=== PATIENT | female | born 2000 | race Caucasian/White ===

== ENCOUNTER 2023-08-04 22:50 | Inpatient (IN) | payer BC, SELFPAY ==
[2023-08-04 23:21] LABS: MANUAL DIFF FLAG NO
[2023-08-04 23:22] LABS: Basophils Percent Auto 0.4 % (0-2); Eosinophils Absolute Auto 0.2 X10*3/uL (0.0-0.4); Eosinophils Percent Auto 2.4 % (0-4); Hematocrit 41.5 % (37.0-47.0); Hemoglobin 14.3 g/dl (12.0-16.0); Imm Gran Abs Auto 0.03 X10*3/uL (0.00-0.03); Imm Gran Pct Auto 0.3 % (0.0-0.4); Lymphocytes Percent Auto 32.2 % (20-40); Mean Corpuscular HGB Conc 34.5 g/dl (31.0-35.0); Mean Corpuscular Hemoglobin 30.1 pg (27.0-33.0); Mean Corpuscular Volume 87.4 fL (80.0-98.0); Mean Platelet Volume 9.1 fL (9.4-12.3); Monocytes Absolute Auto 0.6 X10*3/uL (0.1-1.2); Monocytes Percent Auto 6.2 % (2-11); Neutrophils Absolute Auto 5.3 x10*3/uL (2.0-8.3); Neutrophils Percent Auto 58.5 % (45-73); Platelet Count 273 X10*3/uL (160-400); Red Blood Count 4.75 X10*6/uL (4.20-5.50); Red Cell Distribution Width 12.7 % (11.0-16.0); White Blood Count 9.2 X10*3/uL (4.8-10.8)
[2023-08-04 23:38] VITALS: BP 109/68; PULSE 75; RESP 18; TEMP 37.3; O2SAT 99
[2023-08-04 23:43] LABS: Acetaminophen LAB < 3 mcg/mL (<30); Salicylate < 5.0 mg/dL (15-30)
[2023-08-04 23:44] LABS: Alanine Aminotransferase 10 U/L (0-31); Albumin Level 4.1 g/dL (3.5-5.0); Alkaline Phosphatase 66 U/L (39-117); Anion Gap 12 (12-20); Aspartate Amino Transferase 18 U/L (5-31); Bilirubin Total 0.4 mg/dL (0.0-1.0); Blood Urea Nitrogen 14 mg/dL (9-16); Calcium 9.7 mg/dL (8.4-10.2); Carbon Dioxide 26 mmol/L (22-29); Chloride 110 mmol/L (96-108); Creatinine Clr Calc Pharmacy 79.8; Estimated Glomerular Filt Rate > 60; Ethanol < 10 mg/dL; Glucose Random 95 mg/dL (60-115); Magnesium 2.3 mg/dL (1.6-2.6); Potassium 4.2 mmol/L (3.3-5.1); Sodium 144 mmol/L (135-145); Total Protein 7.3 g/dL (6.5-8.0)
--- NOTE | 2023-08-05 00:04 | ED.PSYCH ---
HPI - Psych General Chief Complaint: Psychiatric Symptoms Stated Complaint: Mental Health Concerns Time Seen by Provider: 08/05/23 00:03 Source: patient Mode of arrival: ambulatory Limitations: no limitations History of Present Illness HPI Narrative: 23-year-old female presents with suicidal ideation no particular plan. Reports increasing life stressors. Was seen by her therapist who told her to come in today to be evaluated. Patient reports she typically cuts to feel something however today has been worse and she has been feeling suicidal however she tells me she cut to cope not to kill herself. Reports increasing life stressors, recently broke up with significant other, recent of a loved 1, and reports brother who she is financially responsible for is currently hospitalized. Denies visual, auditory and tactile hallucinations. Denies drugs, alcohol and tobacco. No medical complaints. Related Data Allergies Allergy/AdvReac Type Severity Reaction Status Date / Time Unable to Assess Allergy Unverified 08/04/23 23:03 Review of Systems Review of Systems: Yes all other systems are reviewed and are negative [facility] Past Medical History Attestation statement: The following information was validated with the patient. Source: old records reviewed and nursing notes reviewed Social History Social History Advance Directives: No Advance Directives Information Provided: Yes Physical Exam Vital Signs: Vital Signs: Last Vital Signs Temp 99.1 F 08/04/23 23:38 Pulse 75 08/04/23 23:38 Resp 18 08/04/23 23:38 BP 109/68 08/04/23 23:38 Pulse Ox 99 08/04/23 23:38 O2 Del Method Room Air 08/04/23 23:38 BMI result Body Mass Index 20.0 vss Appearance: Alert.? Oriented X3.? No acute distress.?Flat affect Head: Normocephalic, atraumatic, no step-offs or deformities Eyes: Pupils equal, round and reactive to light.? ENT: Pharynx normal.? Neck: Normal inspection.? Neck supple.? CVS: Normal heart rate and rhythm.? Pulses normal.? Respiratory: No respiratory distress.? Breath sounds normal.? Abdomen: Soft and nontender.? Skin: Skin warm and dry.? Normal skin color.? Normal skin turgor.? Extremities: No lower extremity edema.? No calf ttp. 5/5 strength to bilateral upper and lower extremities + multiple superficial lacerations to chest, abdomen b/l UE and LE. No deep laceraitions noted. Neuro: Oriented X 3.? No motor deficit.? No sensory deficit. CN 2-12 intact Course Reevaluation(s) Reevaluation #1: CBC unremarkable. Chemistry no acute findings. Salicylates, acetaminophen ethanol negative. Urine toxicology pending. At this time patient to be placed into observation to allow more time to be evaluated by care team. At time observation started patient on one-to-one, will continue to monitor. Time: 00:09 Medical Decision Making Medical Decision Making [facility] Narrative: 0005 23-year-old female presents with suicidal ideation with plan to cut wrist, presents with multiple lacerations upper and lower extremities. Was advised to come in by therapist Physical exam superficial lacerations to chest, abdomen, upper and lower extremities. No deep lacerations requiring repair. History and physical exam concerning for anxiety versus depression. Other differentials include schizophrenia, bipolar disorder. Unlikely suicidal or homicidal ideation patient denies this. Unlikely metabolic derangements. No signs of infected wounds. Plan medical clearance, safety measures in place Differential Diagnosis Differential Diagnoses: The differential diagnosis associated with the presentation includes History and physical exam concerning for anxiety versus depression. Other differentials include schizophrenia, bipolar disorder. Unlikely suicidal or homicidal ideation patient denies this. Unlikely metabolic derangements. No signs of infected wounds. Admission/Observation Consideration of admission/observation: Escalation of care including admission/observation considered Possible Lab Data [facility] Lab Attestation statement: I reviewed the patient's lab results. 08/04/23 23:14 08/04/23 23:14 Labs: Lab Results 08/04/23 Range/Units 23:14 WBC 9.2 (4.8-10.8) X10*3/uL RBC 4.75 (4.20-5.50) X10*6/uL Hgb 14.3 (12.0-16.0) g/dl Hct 41.5 (37.0-47.0) % MCV 87.4 (80.0-98.0) fL MCH 30.1 (27.0-33.0) pg MCHC 34.5 (31.0-35.0) g/dl RDW 12.7 (11.0-16.0) % Plt Count 273 (160-400) X10*3/uL MPV 9.1 L (9.4-12.3) fL Immature Gran % (Auto) 0.3 (0.0-0.4) % Neut % (Auto) 58.5 (45-73) % Lymph % (Auto) 32.2 (20-40) % [place] % (Auto) 6.2 (2-11) % Eos % (Auto) 2.4 (0-4) % Baso % (Auto) 0.4 (0-2) % Lymph # (Auto) 3.0 (1.2-4.9) X10*3/uL [place] # (Auto) 0.6 (0.1-1.2) X10*3/uL Eos # (Auto) 0.2 (0.0-0.4) X10*3/uL Baso # (Auto) 0.0 (0.0-0.2) X10*3/uL Abs Immat Gran (auto) 0.03 (0.00-0.03) X10*3/uL Absolute Neuts (auto) 5.3 (2.0-8.3) x10*3/uL Absolute Nucleated RBC 0.000 (0.0-0.012) X10*3/uL Nucleated RBC % (auto) 0.0 (0.0-0.2) /100WBC Sodium 144 (135-145) mmol/L Potassium 4.2 (3.3-5.1) mmol/L Chloride 110 H (96-108) mmol/L Carbon Dioxide 26 (22-29) mmol/L Anion Gap 12 (12-20) BUN 14 (9-16) mg/dL Creatinine 0.95 (0.5-1.4) mg/dL Estim Creat Clear Calc 79.8 Estimated GFR > 60 Random Glucose 95 (60-115) mg/dL Calcium 9.7 (8.4-10.2) mg/dL Magnesium 2.3 (1.6-2.6) mg/dL Total Bilirubin 0.4 (0.0-1.0) mg/dL AST 18 (5-31) U/L ALT 10 (0-31) U/L Alkaline Phosphatase 66 (39-117) U/L Total Protein 7.3 (6.5-8.0) g/dL Albumin 4.1 (3.5-5.0) g/dL Salicylates < 5.0 L (15-30) mg/dL Acetaminophen < 3 (<30) mcg/mL Ethyl Alcohol < 10 mg/dL Chronic Conditions Patient?s care impacted by: Other (Depression) Discharge Plan Discharge Clinical Impression: Laceration of multiple sites of left upper extremity, Laceration of arm, right, multiple sites, Laceration of chest, Laceration of abdominal wall, Depression with suicidal ideation Patient Disposition: Still a Patient
[2023-08-05 00:48] LABS: Amphetamine Screen Urine Not Detected (Not Detect); Barbiturates, Urine Not Detected (Not Detect); Benzodiazepines Screen Urine Not Detected (Not Detect); Cannabinoid Screen Urine POSITIVE (Not Detect); Cocaine Screen Urine Not Detected (Not Detect); Fentanyl, urine Not Detected (Not Detect); Opiate Screen Urine Not Detected (Not Detect); Phencyclidine Screen Urine Not Detected (Not Detect)
[2023-08-05] MEDS: Diphth,Pertus(ACell),Tet Adult 0.5 ML SYRINGE IM (01:21)
[2023-08-05 06:52] VITALS: RESP 16
--- NOTE | 2023-08-05 07:21 | PC.NURSE ---
Assumed care of patient at 0700, patient appears to be sleeping, respirations even and unlabored, no apparent distress noted. MD Husain notified to continue patient's home medications. Continue plan of care for CARE team evaluation
--- NOTE | 2023-08-05 08:13 | MHC.CARE ---
Patient's therapist is Robert Ledezma. [phone]. Can provide any background/ collateral info needed.
[2023-08-05] MEDS: Cariprazine HCl 1.5 MG CAPSULE PO (08:27)
--- NOTE | 2023-08-05 09:30 | PC.NURSE ---
Pts personal control sent to pharmacy for verification. Patient took shower without issue
[2023-08-05 10:35] VITALS: BP 106/68; PULSE 71; RESP 16; TEMP 36.9; O2SAT 99
--- NOTE | 2023-08-05 10:47 | PC.NURSE ---
Patient aware of need for urine sample, unable to provide one at this time but states I will when I can
[2023-08-05 11:00] LABS: COVID-19 Test Negative (Negative); IDNOW Serial# 08D9AD1C
[2023-08-05 14:05] LABS: Appearance Urine Clear; Color Urine Yellow; Glucose Urine UA Negative (Negative); Leukocyte Esterase Urine Negative (Negative); Nitrite Urine Negative (Negative); PH 7.5 (5.0-9.0); UMIC TRIGGER UACC YES; Urine Blood Small (1+) (Negative); Urine Ketones Negative (Negative); Urine Protein Negative (Neg-Trace)
[2023-08-05 14:31] LABS: Bacteria Urine None Seen (None Seen); Hyaline Casts Urine 0-2 /LPF (0-2); RBC Urine 0-2 /HPF (0-2); Squamous Epithelial Cell Urine 0-2 /HPF (0-2); WBC Urine 0-5 /HPF (0-5)
[2023-08-05 18:19] VITALS: BP 104/62; PULSE 68; RESP 18; TEMP 36.3; O2SAT 99
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
[2023-08-06 08:16] LABS: Estimated Average Glucose 88 mg/dL; Hemoglobin A1c % 4.7 % (<6.0)
[2023-08-06 08:20] LABS: Cholesterol 155 mg/dL (<200); HDL Cholesterol 62 mg/dL (>40); LDL Cholesterol Calculated 76 mg/dL (<100); Magnesium 2.2 mg/dL (1.6-2.6); Triglycerides 85 mg/dL (<150)
[2023-08-06 08:37] LABS: Free T4 (Free Thyroxine) 0.88 ng/dL (0.71-1.85)
[2023-08-06 08:51] LABS: Folate 11.5 ng/mL (> or = 4.0); Vitamin B12 412 pg/mL (200-900)
[2023-08-06 09:17] VITALS: BP 102/67; PULSE 91; RESP 17; TEMP 36.6; O2SAT 97
[2023-08-06] MEDS: Cariprazine HCl 1.5 MG CAPSULE PO (09:23)
--- NOTE | 2023-08-06 14:58 | PC.NURSE ---
Pt signed 3 day notice dated for 08/05/23. All appropriate persons informed
[2023-08-06 16:15] VITALS: BP 121/68; PULSE 89; RESP 16; TEMP 36.8; O2SAT 99
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
[2023-08-06] MEDS: Cariprazine HCl 3 MG CAPSULE PO (20:25)
[2023-08-07 06:00] VITALS: BP 103/54; PULSE 66; RESP 17; TEMP 37.7; O2SAT 98
[2023-08-07 07:00] VITALS: BMI 22.0
--- NOTE | 2023-08-07 17:26 | HO.PSYCHPN ---
Subjective Subjective Date of Service: 08/07/23 Reason For Visit: Recurrent Major Depression Interim History: Met with patient; discussed with team Patient reports feeling much better today and that depression is pretty much gone. Of note patient has significantly brighter affect, smiling, interacting naturally and appropriately with peers and staff. No SI at all. Also no urges to self-harm and patient discussed in more detail where she will cope with such urges. Discussed aftercare and patient feels safe for discharge tomorrow as a 3 day notice is due. Also discussed her relationship with her recent break-up and patient says she is much more resolved about it, having some closure after thinking it through. She also feels supported by this person even though they are no longer romantically involved. Patient is sleeping and eating well; no medication side effects. Had visitors today and she is excited to spend time with them on discharge with plans already in place. Mental Status Exam Mental Status Exam Narrative: Pt is alert and oriented; behavior is cooperative, friendly, calm, forthcoming; patient is not in distress; dressed in casual attire, well groomed; mood is described as better and affect congruent, brighter, calm; eye contact appropriate; Speech is normal rate, volume and prosody and not pressured; no psychomotor agitation/retardation present; thought process is organized and goal directed; Thought content is on treatment, aftercare plans, continuing to work on coping skills, tx; otherwise pertinent to relevant topics and without any delusional content, paranoid ideations or grandiosity; no passive or active SI; no urges to self-harm; no HI. There is no evidence of perceptual disturbance and patient denies AVH. Patients insight and judgment fair Diagnostics Vital Signs (24Hr): Vital Signs - 24 hr 08/07/23 06:00 Temperature 99.8 F Pulse Rate 66 Respiratory Rate 17 Blood Pressure 103/54 L Pulse Oximetry 98 Oxygen Delivery Method Room Air BMI result Body Mass Index 22.0 Labs 08/04/23 23:14 08/04/23 23:14 Labs: Laboratory Results - last 48 hr 08/06/23 07:49 Estimat Average Glucose 88 Hemoglobin A1c % 4.7 Magnesium 2.2 Triglycerides 85 Cholesterol 155 LDL Cholesterol, Calc 76 HDL Cholesterol 62 Vitamin B12 412 Folate 11.5 TSH 7.70 H Free T4 0.88 Medications Medications Current Medications Acetaminophen (Acetaminophen 325 Mg Tablet) 650 mg PO Q6H PRN PRN Reason: Headache/Pain Mild Scale (1-3) Al Hydroxide/Mg Hydroxide (Magnesium Hydrox/Alum Hydrox 30 Ml Oral.Susp) 30 ml PO Q6H PRN PRN Reason: Heartburn/Nausea Cariprazine (Cariprazine Hcl 3 Mg Capsule) 3 mg PO BEDTIME BJ Last Admin: 08/06/23 20:25 Dose: 3 mg Hydroxyzine HCl (Hydroxyzine Hcl 25 Mg Tablet) 25 mg PO Q6H PRN PRN Reason: Anxiety Magnesium Hydroxide (Milk Of Magnesia 30 Ml Oral.Susp) 30 ml PO DAILY PRN PRN Reason: Constipation Non-Formulary Medication (Drospirenone-Ethinyl Estradiol [Lo-Zumandimine (28)]) 1 tab PO BEDTIME BJ Trazodone HCl (Trazodone Hcl 50 Mg Tablet) 50 mg PO BEDTIME MRX1 PRN PRN Reason: Insomnia Allergies Allergies Allergy/AdvReac Type Severity Reaction Status Date / Time No Known Allergies Allergy Verified 08/05/23 07:11 Assessment & Plan Assessment & Plan (1) Bipolar 1 disorder, depressed: Status: Acute Code(s): F31.9 - Bipolar disorder, unspecified (2) PTSD (post-traumatic stress disorder): Status: Acute Code(s): F43.10 - Post-traumatic stress disorder, unspecified Plan Patient is a resilient 23-year-old college student with history of recently diagnosed bipolar disorder, PTSD depression and anxiety who presents with worsening depression, SI and increased self-harm in the face of several psychosocial stressors. Patient reports that she has been depressed this past month since her grandmother, with whom she grew up throughout high school and took care of 4 parts of her illness, this past June; this past week her brother decompensated and was psychiatrically admitted and then this past weekend patient's boyfriend ended their relationship. She had been feeling depressed but after the relationship ended she became much more depressed, had a hopeless feeling, and her urges to self-harm returned and patient superficially cut her arms thighs and torso. Patient did have suicidal ideation with vague plan to overdose on stock piled medication, though she denies any actual intent; also she did not have have access to her stockpile of medication which has now been removed. Patient was forthcoming with her therapist with whom she sees once a week and therapists urging patient self presented to the ED. patient says that she had her 1st manic episode around where she started to have some visual hallucinations, thought she heard voices but was not sure if it was her own thoughts and then had some grandiose thinking that she could tell the future. Patient was talking fast, hyperactive hyperverbal with racing mind and needing very little sleep. Her outpatient provider doubled her Abilify and manic episode ended. However patient continued to be depressed and eventually she was switched over to Vraylar; she thinks she has had a few minor hypomanic episodes since then, but also depressive episodes and agrees that Vraylar should be increased. Patient endorses history of complex trauma and continues to have hypervigilance, flashbacks, nightmares, though she has discussed this in therapy. Formulation: Patient endorses what meets criteria for and will be provisionally diagnosed as bipolar disorder. Her presenting symptoms however are complicated by interweaving of complex PTSD symptoms and depression. Patient has a complicated relationship with superficial self-harm as well, however she is open about this with her therapist and continues to explore alternatives to coping with strong feelings and thoughts. Currently patient is depressed however SI has resolved. It is noteworthy that despite her exposure to trauma, struggles with depression and kemi, she has managed to graduate high school, get into college and be successful in her education. She is open to both medication management and continued psychotherapy and works very hard to understand herself, process her feelings and pursue goals. Patient agrees to increase Vraylar; she would like to discharge this Friday. She gives permission to discuss her case with therapist Hospital course: /Patient reports feeling much better today and that depression is pretty much gone. Of note patient has significantly brighter affect, smiling, interacting naturally and appropriately with peers and staff. No SI at all. Also no urges to self-harm and patient discussed in more detail where she will cope with such urges. Discussed aftercare and patient feels safe for discharge tomorrow as a 3 day notice is due. Also discussed her relationship with her recent break-up and patient says she is much more resolved about it, having some closure after thinking it through. She also feels supported by this person even though they are no longer romantically involved. Patient is sleeping and eating well; no medication side effects. Had visitors today and she is excited to spend time with them on discharge with plans already in place. -patient's 3 day notice is coming due. Her mood has significantly improved with noticeably brighter affect. Patient has established outpatient support with a provider and therapist with whom she has a good rapport. Patient has not had any SI throughout admission and even self-harming urges have evaporated. While patient will very likely continue to struggle with urges to self-harm, this is a chronic issue for her, one which will not resolve with longer stay on inpatient unit; her self-harm remains superficial and is not dangerous. Patient has been very forthcoming during her admission and remains committed to therapy, pursuing treatment and processing her history of trauma, her other thoughts and feelings. She is future oriented and continues to have significant life and career goals. Patient is not in imminent risk for harm to self and request for discharge honored. Plan: 3 day notice Q 15 minute checks Continue Vraylar to 3 mg q.h.s. Gather collateral Patient educated on: diagnosis, medication risk/benefits and therapeutic strategies Informed Consent: understands Reason for continued inpatient stay Substantial Risk for: stable for discharge Time Spent With Patient Time: Total time managing care of this patient today ____ minutes.
[2023-08-07 18:00] VITALS: BP 125/74; PULSE 83; TEMP 36.8; O2SAT 99
[2023-08-07] MEDS: Cariprazine HCl 3 MG CAPSULE PO (20:35)
[2023-08-07] MEDS: hydrOXYzine HCL 25 MG TABLET PO (20:35)
[2023-08-07] MEDS: traZODone HCL 50 MG TABLET PO (20:35)
[2023-08-08 08:00] VITALS: BP 105/59; PULSE 69; RESP 20; TEMP 37; O2SAT 98
--- NOTE | 2023-08-08 18:21 | PM.PSYDC ---
DS: Providers Provider Date of Service: 08/08/23 Date of admission: 08/05/23 16:07 Date of discharge: 08/08/23 Primary care physician: None Physician Attending physician on admission: Shantanu Frost Attending physician on discharge: Shantanu Frost DS: Diagnosis Discharge Diagnosis (1) Bipolar 1 disorder, depressed: Status: Acute (2) PTSD (post-traumatic stress disorder): Status: Acute DS: Medications Discharge Medications Home Medications: Home Medications ?Medication ?Instructions ?Recorded ?Confirmed drospirenone 3 mg-ethinyl 1 tab PO DAILY 08/05/23 08/05/23 estradiol 0.02 mg tablet (Lo-Zumandimine (28)) Previous Rx's ?Medication ?Instructions ?Recorded cariprazine 3 mg capsule 3 mg PO BEDTIME 30 days #30 caps 08/07/23 Mental Status Exam Mental Status Exam Narrative: Pt is alert and oriented; behavior is cooperative, friendly, calm, forthcoming; patient is not in distress; dressed in casual attire, well groomed; mood is described as better and affect congruent, brighter, calm; eye contact appropriate; Speech is normal rate, volume and prosody and not pressured; no psychomotor agitation/retardation present; thought process is organized and goal directed; Thought content is on treatment, aftercare plans, continuing to work on coping skills, tx; otherwise pertinent to relevant topics and without any delusional content, paranoid ideations or grandiosity; no passive or active SI; no urges to self-harm; no HI. There is no evidence of perceptual disturbance and patient denies AVH. Patients insight and judgment fair Data Data Completed and Pending Completed studies during hospitalization [Text1]: 08/04/23 08/05/23 08/05/23 23:14 00:34 10:41 WBC 9.2 RBC 4.75 Hgb 14.3 Hct 41.5 MCV 87.4 MCH 30.1 MCHC 34.5 RDW 12.7 Plt Count 273 MPV 9.1 L Immature Gran % (Auto) 0.3 Neut % (Auto) 58.5 Lymph % (Auto) 32.2 Delta % (Auto) 6.2 Eos % (Auto) 2.4 Baso % (Auto) 0.4 Lymph # (Auto) 3.0 Delta # (Auto) 0.6 Eos # (Auto) 0.2 Baso # (Auto) 0.0 Abs Immat Gran (auto) 0.03 Absolute Neuts (auto) 5.3 Absolute Nucleated RBC 0.000 Nucleated RBC % (auto) 0.0 Sodium 144 Potassium 4.2 Chloride 110 H Carbon Dioxide 26 Anion Gap 12 BUN 14 Creatinine 0.95 Estim Creat Clear Calc 79.8 Estimated GFR > 60 Random Glucose 95 Estimat Average Glucose Hemoglobin A1c % Calcium 9.7 Magnesium 2.3 Total Bilirubin 0.4 AST 18 ALT 10 Alkaline Phosphatase 66 Total Protein 7.3 Albumin 4.1 Triglycerides Cholesterol LDL Cholesterol, Calc HDL Cholesterol Vitamin B12 Folate TSH Free T4 Urine Color Urine Appearance Urine pH Ur Specific [place] Urine Protein Urine Glucose (UA) Urine Ketones Urine Blood Urine Nitrite Ur Leukocyte Esterase Urine RBC Urine WBC Ur Squamous Epith Cells Urine Bacteria Hyaline Casts Salicylates < 5.0 L Urine Opiates Screen Not Detected Urine Fentanyl Screen Not Detected Acetaminophen < 3 Ur Barbiturates Screen Not Detected Ur Phencyclidine Scrn Not Detected Ur Amphetamines Screen Not Detected U Benzodiazepines Scrn Not Detected Urine Cocaine Screen Not Detected U Marijuana (THC) Screen POSITIVE H Ethyl Alcohol < 10 COVID-19 ([facility]) Negative COVID-19 Clin Com See Note 08/05/23 08/06/23 13:55 07:49 WBC RBC Hgb Hct MCV MCH MCHC RDW Plt Count MPV Immature Gran % (Auto) Neut % (Auto) Lymph % (Auto) Delta % (Auto) Eos % (Auto) Baso % (Auto) Lymph # (Auto) Delta # (Auto) Eos # (Auto) Baso # (Auto) Abs Immat Gran (auto) Absolute Neuts (auto) Absolute Nucleated RBC Nucleated RBC % (auto) Sodium Potassium Chloride Carbon Dioxide Anion Gap BUN Creatinine Estim Creat Clear Calc Estimated GFR Random Glucose Estimat Average Glucose 88 Hemoglobin A1c % 4.7 Calcium Magnesium 2.2 Total Bilirubin AST ALT Alkaline Phosphatase Total Protein Albumin Triglycerides 85 Cholesterol 155 LDL Cholesterol, Calc 76 HDL Cholesterol 62 Vitamin B12 412 Folate 11.5 TSH 7.70 H Free T4 0.88 Urine Color Yellow Urine Appearance Clear Urine pH 7.5 Ur Specific [place] 1.010 Urine Protein Negative Urine Glucose (UA) Negative Urine Ketones Negative Urine Blood Small (1+) H Urine Nitrite Negative Ur Leukocyte Esterase Negative Urine RBC 0-2 Urine WBC 0-5 Ur Squamous Epith Cells 0-2 Urine Bacteria None Seen Hyaline Casts 0-2 Salicylates Urine Opiates Screen Urine Fentanyl Screen Acetaminophen Ur Barbiturates Screen Ur Phencyclidine Scrn Ur Amphetamines Screen U Benzodiazepines Scrn Urine Cocaine Screen U Marijuana (THC) Screen Ethyl Alcohol COVID-19 ([facility]) COVID-19 Clin Com DS: Summary Hospital Course Hospital Course: Patient is a resilient 23-year-old college student with history of recently diagnosed bipolar disorder, PTSD depression and anxiety who presents with worsening depression, SI and increased self-harm in the face of several psychosocial stressors. Patient reports that she has been depressed this past month since her grandmother, with whom she grew up throughout high school and took care of 4 parts of her illness, this past June; this past week her brother decompensated and was psychiatrically admitted and then this past weekend patient's boyfriend ended their relationship. She had been feeling depressed but after the relationship ended she became much more depressed, had a hopeless feeling, and her urges to self-harm returned and patient superficially cut her arms thighs and torso. Patient did have suicidal ideation with vague plan to overdose on stock piled medication, though she denies any actual intent; also she did not have have access to her stockpile of medication which has now been removed. Patient was forthcoming with her therapist with whom she sees once a week and therapists urging patient self presented to the ED. patient says that she had her 1st manic episode around where she started to have some visual hallucinations, thought she heard voices but was not sure if it was her own thoughts and then had some grandiose thinking that she could tell the future. Patient was talking fast, hyperactive hyperverbal with racing mind and needing very little sleep. Her outpatient provider doubled her Abilify and manic episode ended. However patient continued to be depressed and eventually she was switched over to Vraylar; she thinks she has had a few minor hypomanic episodes since then, but also depressive episodes and agrees that Vraylar should be increased. Patient endorses history of complex trauma and continues to have hypervigilance, flashbacks, nightmares, though she has discussed this in therapy. Formulation: Patient endorses what meets criteria for and will be provisionally diagnosed as bipolar disorder. Her presenting symptoms however are complicated by interweaving of complex PTSD symptoms and depression. Patient has a complicated relationship with superficial self-harm as well, however she is open about this with her therapist and continues to explore alternatives to coping with strong feelings and thoughts. Currently patient is depressed however SI has resolved. It is noteworthy that despite her exposure to trauma, struggles with depression and kemi, she has managed to graduate high school, get into college and be successful in her education. She is open to both medication management and continued psychotherapy and works very hard to understand herself, process her feelings and pursue goals. Patient agrees to increase Vraylar; she would like to discharge this Friday. She gives permission to discuss her case with therapist Hospital course: 08/06Patient reports feeling much better today and that depression is pretty much gone. Of note patient has significantly brighter affect, smiling, interacting naturally and appropriately with peers and staff. No SI at all. Also no urges to self-harm and patient discussed in more detail where she will cope with such urges. Discussed aftercare and patient feels safe for discharge tomorrow as a 3 day notice is due. Also discussed her relationship with her recent break-up and patient says she is much more resolved about it, having some closure after thinking it through. She also feels supported by this person even though they are no longer romantically involved. Patient is sleeping and eating well; no medication side effects. Had visitors today and she is excited to spend time with them on discharge with plans already in place. -patient's 3 day notice is coming due. Her mood has significantly improved with noticeably brighter affect. Patient has established outpatient support with a provider and therapist with whom she has a good rapport. Patient has not had any SI throughout admission and even self-harming urges have evaporated. While patient will very likely continue to struggle with urges to self-harm, this is a chronic issue for her, one which will not resolve with longer stay on inpatient unit; her self-harm remains superficial and is not dangerous. Patient has been very forthcoming during her admission and remains committed to therapy, pursuing treatment and processing her history of trauma, her other thoughts and feelings. She is future oriented and continues to have significant life and career goals. Patient is not in imminent risk for harm to self and request for discharge honored. Time spent discussing smoking cessation with patient: 3 to 10 minutes Status at Discharge Functional status at discharge: independent ambulation Overall status at discharge: patient is back to baseline Time Spent with Patient Time attestation: Total time managing care of this patient today ___ minutes. Time spent: Less than 30 minutes Discharge Plan Discharge Anticipated Discharge Date/Time: 08/08/23 23:00 Patient Disposition: Home, Self-Care Discharge Diagnosis: bipolar I disorder, recurrent, severe most recent episode depressed, in full remission Referrals: Robert Valenzuela: [facility] [Other] - 08/13/23 1:30 pm (Scheduled appointment with outpatient therapist) [facility] [Other] - 08/08/23 3:00 pm (Follow-up with [facility] ) [facility] [Other] - 08/13/23 10:00 am [facility]: Yum[facility] Rodriguez(psychiatry) [Other] - 08/14/23 1:00 pm (Hospital Discharge with covering psychiatric provider) Discharge Medications: Continued drospirenone-ethinyl estradiol [Lo-Zumandimine (28)] 3-0.02 mg tablet 1 tab PO DAILY Changed cariprazine 3 mg capsule 3 mg PO BEDTIME 30 Days Qty: 30 0RF Discharge Orders: Discharge Order (Routine); Ordered 08/07/23 Ordered By: Shantanu Frost Diet: Regular diet Activity on Discharge: As tolerated Stand Alone Forms: Patient Portal Discharge page, Community Support Print Language: Azeri Care Plan Goals: Maintain mood and safe behaviors Take medications as prescribed Practice coping skills Continue with outpatient providers and reach out to them as needed Health Concerns: Mood stability and behaviors Plan of Treatment: Follow up with your PCP, psychiatric provider and other outpatient providers regarding above concerns Take medications as prescribed Assessment: Risk assessment at time of discharge:? Patient was interviewed prior to discharge and found to be fully oriented and without any SI or HI. Patient has improved insight and judgment and wants to continue treatment. Patient is not in imminent risk of harm to self or others and has a safety plan that includes presenting to the closest ER or calling 911 if feeling unsafe.? Patient has been observed closely by nursing and unit staff throughout admission; patient has not engaged in any behaviors that suggest dangerousness to self or others and has demonstrated appropriate behaviors and impulse control Discharge Date/Time: 08/08/23 11:00
== END 2023-08-08 11:00 | disposition home or self-care (01) | DRG 753 ==
LOC: HO.ED 08-05 00:22 → HO.PM5 08-05 16:14
PROVIDERS: Physician Assistant; Admitting Provider Clinical Nurse Specialist Psychiatric/Mental Health, Adult; Emergency Provider Emergency Medicine Emergency Medical Services; Visit Provider Psychiatry & Neurology Psychiatry
DX: F31.9 Bipolar disorder, unspecified (principal); R45.851 Suicidal ideations; F43.10 Post-traumatic stress disorder, unspecified; Z20.822 Contact with and (suspected) exposure to COVID-19; Z91.51 Personal history of suicidal behavior; Z63.4 Disappearance and death of family member
CPT/HCPCS: 36415; 80053; 80061; 80143; 80179; 80307; 81001; 81003; 82607; 82746; 83036; 83735; 84439; 84443; 85025; 87635; 90715; 99285; S9485

== ENCOUNTER → 2023-08-05 16:07 | Outpatient (BNV) | payer BC, SELFPAY | PROVIDERS: Admitting Provider Clinical Nurse Specialist Psychiatric/Mental Health, Adult; Emergency Provider Emergency Medicine Emergency Medical Services; Visit Provider Psychiatry & Neurology Psychiatry | DX: F31.4 Bipolar disorder, current episode depressed, severe, without psychotic features (principal); F43.11 Post-traumatic stress disorder, acute | CPT/HCPCS: 90792; 99232; 99238 ==